=== PATIENT | female | born 1975 | race African-American/Black ===

== ENCOUNTER 2016-09-11 12:06 | Emergency (ER) | payer OTHER ==
[~2016-09-11] VITALS: Ht 157.5 cm; Wt 104.3 kg
[~2016-09-11 12:06] MED LIST: AMITRIPTYLINE25 MG ORAL; BACTRIM DS TAB1 EAC1 ORAL; CYCLOBENZAPRINE10 MG ORAL; GABAPENTIN300 MG ORAL; KEFLEX500 MG ORAL
[2016-09-11] MEDS ORDERED: GABAPENTIN300 MG ORAL (12:48)
[2016-09-11 13:40] VITALS: BP 118/64
--- NOTE | 2016-09-11 14:27 | Emergency Room Report ---
History of Present Illness General Chief Complaint: Pain Source: Patient Present Illness HPI The patient is a 41-year-old female with a history of peripheral neuropathy presenting for bilateral arm pain and tingling. The patient states that she usually takes gabapentin but has run out of medications. The patient has not been able to see her PMD so she is currently emergency department for medication refill. Pain is described as a 10 out of 10 tingling sensation which extends from the neck to the fingers. Pain worse with movement. The patient denies any other symptoms including N, V, F, chills, FISHMAN, dizziness, blurred vision, CP, SOB Allergies: Coded Allergies: No Known Allergies (Unverified , 09/11/16) Patient History Past Medical History: see triage record Pertinent Family History: none Last Menstrual Period: 07/27/16 Now: No Reviewed Nursing Documentation: PMH: Agreed, PSxH: Agreed Nursing Documentation-PMH Past Medical History: No History, Except For Hx Hypertension: No Hx Pacemaker: No Hx Asthma: No Hx COPD: No Hx Diabetes: No Hx Cancer: No Hx Gastrointestinal Problems: No Hx Dialysis: No Hx Neurological Problems: No Hx Cerebrovascular Accident: No Hx Seizures: No Review of Systems All Other Systems: negative except mentioned in HPI Physical Exam Vital Signs Date Time Temp Pulse Resp B/P Pulse Ox O2 Delivery O2 Flow Rate FiO2 09/11/16 12:32 98.1 66 16 118/64 96 Room Air Sp02 EP Interpretation: reviewed, normal General Appearance: no apparent distress, alert, GCS 15, non-toxic Head: normocephalic, atraumatic Eyes: bilateral eye PERRL, bilateral eye normal inspection ENT: hearing grossly normal, normal pharynx, no angioedema, normal voice Neck: full range of motion, supple, no bony tend, tender lateral - bilat Respiratory: chest non-tender, lungs clear, normal breath sounds, no wheezing, speaking full sentences Musculoskeletal: normal inspection, gait/station normal, normal range of motion , tender - diffusely over bilat arms Neurologic: alert, oriented x3, responsive, motor strength/tone normal, sensory intact, normal gait, speech normal Psychiatric: judgement/insight normal, memory normal, mood/affect normal, no suicidal/homicidal ideation Skin: normal color, no rash, warm/dry, well hydrated Lymphatic: no adenopathy Medical Decision Making PA Attestation Dr. Guardado is my supervising physician. Patient management was discussed with my supervising physician Diagnostic Impression: Primary Impression: Medication refill Additional Impression: Neuropathy ER Course The patient is a 41-year-old female with a history of peripheral neuropathy presenting for bilateral arm pain and tingling. Ddx considered include but not limited to sprain/strain, fracture, contusion, peripheral neuropathy PE vitals WNL. NAD PERRL TTP over bilat lateral neck. No midline tenderness. Full AROM. Diffuse TTP over bilat arms. Full AROM. The patient is given a refill of medications and will follow up with PMD as soon as possible. ER precautions given Last Vital Signs Date Time Temp Pulse Resp B/P Pulse Ox O2 Delivery O2 Flow Rate FiO2 09/11/16 12:32 98.1 66 16 118/64 96 Room Air Status: improved Disposition: HOME, SELF-CARE Condition: Improved Scripts Gabapentin* (GABAPENTIN*) 300 Mg Capsule 300 MG ORAL THREE TIMES A DAY, #90 CAP 0 Refills Prov: ERIC BALLESTEROS 09/11/16 Referrals: [facility],REFERRING (PCP) Patient Instructions: Peripheral Neuropathy Additional Instructions: I discussed my findings with the patient. All questions and concerns have been answered. Treatment and medication compliance have been addressed. I advised the patient that they need to follow up with PMD in 3-5 days. Return to ED if symptoms worsen, new symptoms arise, or if needed for any reason. Patient verbalized understanding of discharge instructions. ERIC BALLESTEROS Sep 11, 2016 14:27
== END 2016-09-11 13:40 | disposition home or self-care (01) ==
LOC: EMR 13:00
DX: Z76.0 Encounter for issue of repeat prescription (principal); G62.9 Polyneuropathy, unspecified
CPT/HCPCS: 99282

== ENCOUNTER 2016-10-13 17:44 | Emergency (ER) | payer OTHER ==
[~2016-10-13] VITALS: Ht 157.5 cm; Wt 104.3 kg
[2016-10-13] MEDS ORDERED: AUGMENTIN 875-1 EAC1 ORAL (18:38)
[2016-10-13] MEDS ORDERED: ACETAMINOPHEN-1 EAC2 ORAL (18:38)
[2016-10-13] MEDS ORDERED: NAPROXEN500 M1 ORAL (18:38)
[2016-10-13] MEDS ORDERED: GABAPENTIN300 MG ORAL (18:38)
--- NOTE | 2016-10-13 18:40 | Emergency Room Report ---
History of Present Illness General Chief Complaint: Toothache Source: Patient Present Illness HPI 41-year-old female complains of left-sided tooth pain for 3 days. States that she's had pain for the past one month has gotten worse for the past 3 days associated with her left molar being checked. States that she is in between insurance but will have insurance active in the next 2 weeks or so and has an appointment with a dentist in the next 2 weeks. States that the pain is currently 7/10 earlier it was 10 out of 10 worse with eating and has no relieving factors. Patient also states that she takes gabapentin 300 mg one tab by mouth 3 times a day for her chronic neuropathy and is requesting a refill for her medication.Denies any current n/v/f/c/d, abd pain, back pain, neck pain, photophobia, phonophobia, CP, SOB or headache. Allergies: Coded Allergies: No Known Allergies (Unverified , 09/11/16) Patient History Past Medical History: see triage record Past Surgical History: none Pertinent Family History: none Last Menstrual Period: 09/28/16 Now: No Reviewed Nursing Documentation: PMH: Agreed, PSxH: Agreed Nursing Documentation-PMH Hx Hypertension: No Hx Pacemaker: No Hx Asthma: No Hx COPD: No Hx Diabetes: No Hx Cancer: No Hx Gastrointestinal Problems: No Hx Dialysis: No Hx Neurological Problems: No Hx Cerebrovascular Accident: No Hx Seizures: No Review of Systems All Other Systems: negative except mentioned in HPI Physical Exam Vital Signs Date Time Temp Pulse Resp B/P Pulse Ox O2 Delivery O2 Flow Rate FiO2 10/13/16 17:53 97.9 72 16 126/80 95 Room Air Sp02 EP Interpretation: reviewed, normal General Appearance: no apparent distress, alert, GCS 15, non-toxic Head: normocephalic, atraumatic Eyes: bilateral eye PERRL, bilateral eye normal inspection ENT: hearing grossly normal, normal pharynx, no angioedema, normal voice, other - Left molar with chip fracture on medial aspect of tooth. Tender to percussion. No exudates or erythema noted in the or near the gum line or from the tooth. Neck: full range of motion, supple/symm/no masses Respiratory: chest non-tender, lungs clear, normal breath sounds, speaking full sentences Cardiovascular #1: regular rate, rhythm, no edema Skin: normal color, no rash, warm/dry, well hydrated Medical Decision Making PA Attestation Dr. Berger is my supervising physician with whom patient management has been discussed with. Diagnostic Impression: Primary Impression: Dental caries Additional Impressions: Chipped tooth Qualified Codes: S02.5XXB - Fracture of tooth (traumatic), initial encounter for open fracture Medication refill Neuropathy ER Course Pt. presents to the ED c/o tooth pain Ddx considered but are not limited to dental caries, chipped tooth, ludwigs angina, dental abscess Vital signs: are WNL, pt. is afebrile H&PE are most consistent with Dental caries with tooth fracture, med refill for neuropathy ORDERS: none required at this time, the diagnosis is clinical ED INTERVENTIONS: none required at this time. DISCHARGE: At this time pt. is stable for d/c to home. Will provide printed patient care instructions, and any necessary prescriptions. Care plan and follow up instructions have been discussed with the patient prior to discharge. Last Vital Signs Date Time Temp Pulse Resp B/P Pulse Ox O2 Delivery O2 Flow Rate FiO2 10/13/16 17:53 97.9 72 16 126/80 95 Room Air Status: unchanged Disposition: HOME, SELF-CARE Condition: Stable Scripts Gabapentin* (GABAPENTIN*) 300 Mg Capsule 300 MG ORAL THREE TIMES A DAY, #90 CAP 0 Refills Prov: SABRY,TAMEEM P.A. 10/13/16 Acetaminophen With Codeine (T#4) (TYLENOL #4 TAB*) Y Tab 1 TAB ORAL Q8H Y for For Pain, #12 TAB 0 Refills Prov: SABRY,TAMEEM P.A. 10/13/16 Naproxen* (NAPROXEN*) 500 Mg Tablet.dr 500 MG ORAL TWICE A DAY, #20 TAB Prov: SABRY,TAMEEM P.A. 10/13/16 Amoxicillin/Potassium Clav 875-125* (AUGMENTIN 875-125 TABLET*) 1 Each Tablet 1 TAB ORAL TWICE A DAY, #20 TAB Prov: SABRY,TAMEEM P.A. 10/13/16 Referrals: [facility],REFERRING (PCP) Patient Instructions: Dental Caries, Tooth Injuries Additional Instructions: Take medication as directed. Patient instructed to take ibuprofen and tylenol as needed for pain. Patient to return for wound check in 3-5 days with dentist. Patient is to keep the infected area clean and dry. Patient should come back sooner if their symptoms do not get better within 3 days of starting treatment or if the red area gets bigger, more swollen, or more painful. KRUPA GUZMAN Oct 13, 2016 18:40
[2016-10-13 18:44] VITALS: BP 126/80
== END 2016-10-13 18:48 | disposition home or self-care (01) ==
LOC: EMR 18:28
DX: K02.9 Dental caries, unspecified (principal); S02.5XXB Fracture of tooth (traumatic), initial encounter for open fracture; Z76.0 Encounter for issue of repeat prescription; G62.9 Polyneuropathy, unspecified; X58.XXXA Exposure to other specified factors, initial encounter; Y93.9 Activity, unspecified; Y92.9 Unspecified place or not applicable
CPT/HCPCS: 99284

== ENCOUNTER 2016-10-20 17:12 | Emergency (ER) | payer OTHER ==
[~2016-10-20] VITALS: Ht 157.5 cm; Wt 104.3 kg
[~2016-10-20 17:12] MED LIST changes: +ACETAMINOPHEN-1 EAC2 ORAL; +AUGMENTIN 875-1 EAC1 ORAL; +NAPROXEN500 M1 ORAL
[2016-10-20 17:46] VITALS: BP 117/67
[2016-10-20] MEDS ORDERED: IBUPROFEN600 MG ORAL (17:55)
[2016-10-20 18:27] VITALS: BP 117/67
--- NOTE | 2016-10-20 20:21 | Emergency Room Report ---
History of Present Illness General Chief Complaint: Toothache Source: Patient Present Illness HPI The patient is a 41-year-old female presenting for dental pain. The patient was seen in this emergency department for the same complaint 2 weeks prior. She was given a prescription for antibiotics and pain medication. She states that she has finished both prescriptions and wants a refill. She has not been able to see a dentist due to lack of insurance. Pain is described as a 10 out of 10 dull ache to the left lower jaw and does not radiate. Pain worse with chewing. She denies any other symptoms including N, V, F, chills, sore throat, CP, SOB Allergies: Coded Allergies: No Known Allergies (Unverified , 09/11/16) Patient History Past Medical History: see triage record Pertinent Family History: none Last Menstrual Period: 09/28/16 Now: No Reviewed Nursing Documentation: PMH: Agreed, PSxH: Agreed Nursing Documentation-PMH Hx Hypertension: No Hx Pacemaker: No Hx Asthma: No Hx COPD: No Hx Diabetes: No Hx Cancer: No Hx Gastrointestinal Problems: No Hx Dialysis: No Hx Neurological Problems: No Hx Cerebrovascular Accident: No Hx Seizures: No Review of Systems All Other Systems: negative except mentioned in HPI Physical Exam Vital Signs Date Time Temp Pulse Resp B/P Pulse Ox O2 Delivery O2 Flow Rate FiO2 10/20/16 17:18 98.2 71 16 117/67 100 Room Air Sp02 EP Interpretation: reviewed, normal General Appearance: no apparent distress, alert, GCS 15, non-toxic Head: normocephalic, atraumatic Eyes: bilateral eye PERRL, bilateral eye normal inspection ENT: hearing grossly normal, normal voice, uvula midline, other - L lower premolar. Fracture. No surrounding erythema or edema Neck: full range of motion, supple/symm/no masses Neurologic: alert, oriented x3, responsive, motor strength/tone normal, sensory intact, speech normal Psychiatric: judgement/insight normal, memory normal, mood/affect normal, no suicidal/homicidal ideation Skin: normal color, no rash, warm/dry, well hydrated Lymphatic: no adenopathy Medical Decision Making PA Attestation Dr. Salazar is my supervising physician. Patient management was discussed with my supervising physician Diagnostic Impression: Primary Impression: Toothache ER Course The patient is a 41-year-old female presenting for dental pain Diagnoses considered but not limited to: Dental luis m, dental abscess, toothache , gingivitis Physical exam: Vitals are within normal limits. No apparent distress. HEENT: There is poor dentition throughout. Uvula midline. No tonsillar edema. There is a fracture of the left lower premolar which is tender to palpation. No surrounding edema or erythema. No discharge. No bleeding There is no need to get a refill for antibiotics. The patient needs to follow up with dentist as soon as possible. The patient is given a prescription for Motrin. ER precautions given Last Vital Signs Date Time Temp Pulse Resp B/P Pulse Ox O2 Delivery O2 Flow Rate FiO2 10/20/16 18:27 98.2 79 16 117/67 100 Room Air Status: improved Disposition: HOME, SELF-CARE Condition: Improved Scripts Ibuprofen* (MOTRIN*) 600 Mg Tablet 600 MG ORAL Q8H Y for For Pain, #30 TAB 0 Refills Prov: ERIC BALLESTEROS 10/20/16 Referrals: [facility],REFERRING (PCP) Patient Instructions: Dental Pain Additional Instructions: I discussed my findings with the patient. All questions and concerns have been answered. Treatment and medication compliance have been addressed. I advised the patient that they need to follow up with PMD in 3-5 days. Return to ED if symptoms worsen, new symptoms arise, or if needed for any reason. Patient verbalized understanding of discharge instructions. The patient is given information regarding low cost dentist clinics. She will need to see a dentist as soon as possible ERIC BALLESTEROS Oct 20, 2016 20:21
== END 2016-10-20 18:31 | disposition home or self-care (01) ==
LOC: EMR 17:55
DX: K08.89 Other specified disorders of teeth and supporting structures (principal)
CPT/HCPCS: 99283

== ENCOUNTER 2018-05-15 16:56 | Emergency (ER) | payer OTHER ==
[~2018-05-15] VITALS: Ht 157.5 cm; Wt 87.1 kg
[~2018-05-15 16:56] MED LIST changes: +IBUPROFEN600 MG ORAL
[2018-05-15] MEDS ORDERED: Ketorolac 30mg Inj IM ONE (17:30)
[2018-05-15] MEDS ORDERED: Methocarbamol 500mg tab ORAL ONE (17:30)
--- NOTE | 2018-05-15 17:34 | Emergency Room Report ---
History of Present Illness General Chief Complaint: Back Pain-No Injury Source: Patient Present Illness HPI 43-year-old female patient presents ER complaining of left-sided back pain for the past day. Reports that she woke up after sleeping and began experiencing left-sided low back pain, states she thinks she "pulled something". denies acute injury or trauma. Denies pain with urination. Denies pain radiating down legs. Denies bowel or bladder incontinence. Denies history of cancer. Denies fever, chest pain, shortness breath, abdominal pain, diarrhea. Denies history of back surgery. reports history of degenerative changes in her back. denies hematuria, vaginal discharge. Reports last bowel movement today, states normal. Allergies: Coded Allergies: No Known Allergies (Unverified , 09/11/16) Patient History Past Medical History: see triage record Last Menstrual Period: 05/08/18 Now: No : 7 Para: 0 Reviewed Nursing Documentation: PMH: Agreed; PSxH: Agreed Nursing Documentation-PMH Past Medical History: No History, Except For Hx Hypertension: No Hx Pacemaker: No Hx Asthma: No Hx COPD: No Hx Diabetes: No Hx Cancer: No Hx Gastrointestinal Problems: No Hx Dialysis: No Hx Neurological Problems: No Hx Cerebrovascular Accident: No Hx Seizures: No Review of Systems All Other Systems: negative except mentioned in HPI Physical Exam Vital Signs Date Time Temp Pulse Resp B/P (MAP) Pulse Ox O2 Delivery O2 Flow Rate FiO2 05/15/18 17:00 98.2 74 18 119/82 96 Room Air Sp02 EP Interpretation: reviewed, normal General Appearance: well appearing, no apparent distress, alert, GCS 15, non- toxic Head: normocephalic, atraumatic Eyes: bilateral eye normal inspection, bilateral eye PERRL ENT: hearing grossly normal, normal pharynx, no angioedema, normal voice, uvula midline, moist mucus membranes Neck: full range of motion Respiratory: lungs clear, normal breath sounds, no rhonchi, no respiratory distress, no accessory muscle use, no wheezing, speaking full sentences Cardiovascular #1: regular rate, rhythm, no edema Genitourinary: no CVA tenderness Musculoskeletal: back normal - no spinous process tenderness or bony depression , digits/nails normal, gait/station normal, normal range of motion, tender - left lumbosacral region Neurologic: alert, oriented x3, responsive, motor strength/tone normal, SLR negative, sensory intact, cerebellar normal, normal gait, speech normal Psychiatric: mood/affect normal Skin: no rash Medical Decision Making PA Attestation Dr. Knight is my supervising Physician whom patient management has been discussed with. Diagnostic Impression: Primary Impression: Lumbago ER Course Pt presents to ED c/o back pain. DDX considered but are not limited to sprain, strain, cauda equina, epidural abscess, AAA, spinal cord compression, kidney stones, disc herniation. Low suspicion for cauda equina, no bowel or bladder incontinence or retention. No fever, nontoxic appearing, no radiation of pain, low suspicion for epidural mass. No abdominal pain, no blood pressure elevation, nontoxic appearing, low suspicion for AAA. VITAL SIGNS are WNL, patient is afebrile ER COURSE: Pain medication, muscle relaxant and lidocaine patch provided to patient. no acute injury or trauma, no spinous process tenderness, no radiation of pain symptoms, low suspicion for fracture, does not require x-ray imaging at this time. Follow-up with primary care provider for further evaluation and treatment. likely strain versus spasm. UA negative for infection urine negative Followup with pain management and/or PT. Request referral from PCP. Followup wtih PCP for further MRI and/or CT imaging as needed. DISCHARGE: -Rx provided for Tylenol -Rx provided for Lidocaine patch -Rx provided for Robaxin. SE may cause drowsiness, do not take prior to drinking , driving, or operating heacy machinery. At this time pt. is stable for d/c to home. At this time patient is resting comfortably, in no acute distress, nontoxic appearing, smiling and talking without difficulty. Will provide printed patient care instructions, and any necessary prescriptions. Patient instructed to follow with primary care provider for further treatment and referral as needed. Care plan and follow up instructions have been discussed with the patient prior to discharge. Patient reports understanding and agreement to treatment plan. Patient questions asked and answered. ER precautions given, patient instructed to return to ER immediately for any new or worsening of symptoms. - Please note that this Emergency Department Report was dictated using [employer] pack[employer] technology software, occasionally this can lead to erroneous entry secondary to interpretation by the dictation equipment. Labs Test 05/15/18 17:30 Urine Color Pale yellow Urine Appearance Clear Urine pH 9 (4.5-8.0) Urine Specific [place] 1.015 (1.005-1.035) Urine Protein Negative (NEGATIVE) Urine Glucose (UA) Negative (NEGATIVE) Urine Ketones Negative (NEGATIVE) Urine Blood Negative (NEGATIVE) Urine Nitrite Negative (NEGATIVE) Urine Bilirubin Negative (NEGATIVE) Urine Urobilinogen Normal MG/DL (0.0-1.0) Urine Leukocyte Esterase Negative (NEGATIVE) Urine HCG, Qualitative Negative (NEGATIVE) Last Vital Signs Date Time Temp Pulse Resp B/P (MAP) Pulse Ox O2 Delivery O2 Flow Rate FiO2 05/15/18 17:00 98.2 74 18 119/82 96 Room Air Status: improved Disposition: HOME, SELF-CARE Condition: Stable Scripts Acetaminophen* (TYLENOL EXTRA STRENGTH*) 500 Mg Tablet 500 MG ORAL Q8H PRN for Prn Headache/Temp > 101, #30 TAB 0 Refills Prov: Checo Barksdale 05/15/18 Methocarbamol* (ROBAXIN*) 500 Mg Tablet 500 MG PO TID, #21 TAB 0 Refills Prov: Checo Barksdale 05/15/18 Lidocaine (Lidocaine) 1 Each Adh..patch 5 % TP DAILY for 7 Days, #7 PATCH Prov: Checo Barksdale 05/15/18 Patient Instructions: Back Pain, Adult, Low Back Strain With Rehab-SportsMed, Muscle Cramps and Spasms, [id number] Additional Instructions: Patient instructed to follow up with primary care provider 3-5 and discuss further referral and imaging at that time. Patient instructed on rest, ice and heat. Do not take muscle relaxant prior to drinking, driving, or operating heavy machinery. Take medications as directed. Patient questions asked and answered. ER precautions given, patient instructed to return to ER immediately for any new or worsening of symptoms. [facility] [address] [facility] [address] [facility], [id number] [email or web address] Checo Barksdale May 15, 2018 17:34
[2018-05-15 18:08] VITALS: BP 119/82
[2018-05-15 18:20] LABS: APPEARANCE,URINE CLEAR; BILIRUBIN, URINE NEGATIVE (NEGATIVE); COLOR,URINE PALE YELLOW; GLUCOSE, URINE (UA) NEGATIVE (NEGATIVE); KETONES,URINE NEGATIVE (NEGATIVE); LEUKOCYTE ESTERASE ,URINE NEGATIVE (NEGATIVE); NITRITE,URINE NEGATIVE (NEGATIVE); PH,URINE 9 (4.5-8.0); PROTEIN,URINE NEGATIVE (NEGATIVE); UROBILINOGEN,URINE NORMAL MG/DL (0.0-1.0)
[2018-05-15] MEDS ORDERED: TYLENOL EXTRA500 MG ORAL (18:52)
[2018-05-15] MEDS ORDERED: LIDOCAINE700 M1 TP (18:52)
[2018-05-15] MEDS ORDERED: ROBAXIN500 MG PO (18:52)
[2018-05-15 19:07] VITALS: BP 119/82
== END 2018-05-15 19:09 | disposition home or self-care (01) ==
LOC: EMR 17:15
DX: M54.5 Low back pain (principal)
CPT/HCPCS: 81003; 81025; 96372; 99283; J1885